=== PATIENT | male | born 1980 | race Caucasian/White ===

== ENCOUNTER 2018-04-30 22:26 | Emergency (ER) | payer MEDICAID, OTHER ==
[~2018-04-30] VITALS: Ht 180.3 cm; Wt 83.9 kg
[2018-04-30 22:48] VITALS: BP 145/92
[2018-04-30] MEDS ORDERED: CEFTRIAXONE 500 MG VIAL ONE (23:29)
[2018-04-30] MEDS ORDERED: LIDOCAINE HCL/PF 2 % 5ML SDV 5 ML VIAL ONE (23:29)
[2018-04-30] MEDS ORDERED: AZITHROMYCIN 250 MG TABLET ONE (23:29)
[2018-04-30] MEDS ORDERED: ONDANSETRON 4 MG TAB.RAPDIS ONE (23:29)
[2018-04-30] MEDS ORDERED: CEFTRIAXONE 500 MG VIAL IM ONE (23:30)
[2018-04-30] MEDS ORDERED: AZITHROMYCIN 250 MG TABLET PO ONE (23:30)
[2018-04-30] MEDS ORDERED: ONDANSETRON 4 MG TAB.RAPDIS SL ONE (23:30)
== END 2018-04-30 23:46 | disposition home or self-care (01) ==
LOC: ER 22:30
DX: A54.01 Gonococcal cystitis and urethritis, unspecified (principal); F17.200 Nicotine dependence, unspecified, uncomplicated; Z71.6 Tobacco abuse counseling
CPT/HCPCS: 96372; 99283; 99406; A4606; J0696; J3490; Q0162; Z7610